=== PATIENT | male | born 1930 | race Caucasian/White ===

== ENCOUNTER 2017-10-10 10:59 | Observation (INO) | payer OTHER ==
--- NOTE | 2017-10-06 15:19 | Diagnostic Imaging Report ---
PROCEDURE: Frontal and lateral views of the chest. COMPARISON: None. INDICATIONS: PREOPERATIVE CHEST XRAY FOR CYSTO SURGERY FINDINGS: Lines/tubes: Dual-lead left-sided cardiac pacemaker. Lungs: The lungs are well inflated and clear. There is no evidence of pneumonia or pulmonary edema. Pleura: There is no pleural effusion or pneumothorax. Heart and mediastinum: The cardiac silhouette is moderately enlarged. The sternotomy wires and mediastinal clips. Bones: Multilevel degenerative changes of the thoracic spine with anterior wedging of mid to lower thoracic vertebral bodies. IMPRESSION: 1. Moderate cardiomegaly without acute decompensation. Latoya Muñiz M.D. Dictated by: Latoya Muñiz M.D. on 10/06/2017 at 15:28 Electronically approved by: Latoya Muñiz M.D. on 10/06/2017 at 15:28
[~2017-10-10] VITALS: Ht 180.3 cm; Wt 88.7 kg
[~2017-10-10 10:59] MED LIST: DIGOXIN125 MCG PO; FISH OIL; FISH OIL 1,0001 EAC2; HEART PILL; MAGNESIUM PO; OMEPRAZOLE20 M1 PO; PRIMIDONE; VITAMIN C1000 MG
[2017-10-10] MEDS ORDERED: GENTAMICIN 80MG/NS 100 ML 200 ML IV ONE (11:17)
[2017-10-10] MEDS ORDERED: CLINDAMYCIN 300MG 50 ML IV ONE (11:18)
[2017-10-10] MEDS ORDERED: CEFAZOLIN SOD 1 GM VIAL ONE (11:18)
[2017-10-10] MEDS ORDERED: ASPIR 8181 MG PO (11:27)
[2017-10-10] MEDS ORDERED: BACITRACIN ZINC 15 GM OINT ONE (12:40)
[2017-10-10] MEDS ORDERED: BACITRACIN 50,000 UNIT VIAL ONE (12:41)
[2017-10-10] MEDS ORDERED: SEVOFLURANE INHAL SOLN 250 ML PEN BTL ONE (13:57)
[2017-10-10] MEDS ORDERED: PROPOFOL IV EMULSION 10 MG/ML 20 ML VIAL ONE (13:57)
[2017-10-10] MEDS ORDERED: ONDANSETRON HCL INJ 2 MG/ML VIAL ONE (13:57)
[2017-10-10] MEDS ORDERED: LIDOCAINE HCL 2% LOCAL INJ 5 ML SDV VIAL INJ ONE (13:57)
[2017-10-10] MEDS ORDERED: DEXAMETHASONE SOD PHOS INJ 4 MG/ML VIAL ONE (13:57)
[2017-10-10] MEDS: D5.45%NS/KCL 20MEQ 1,000 ML IV SCH ×2 (16:09→20:30)
[2017-10-10] MEDS ORDERED: ACETAMINOPHEN 1000 MG/100 ML IV PRN (16:15)
[2017-10-10] MEDS ORDERED: ONDANSETRON HCL INJ 2 MG/ML VIAL IV PRN (16:15)
[2017-10-10] MEDS ORDERED: DIPHENHYDRAMINE HCL INJ 50 MG/ML VIAL IM PRN (16:15)
[2017-10-10] MEDS ORDERED: NALOXONE HCL INJ 0.4 MG/ML AMP IV PRN (16:15)
[2017-10-10] MEDS ORDERED: MORPHINE SULFATE 1 MG/ML 30ML PCA IV PRN (16:15)
[2017-10-10] MEDS ORDERED: DIPHENHYDRAMINE HCL 25 MG CAP PO PRN (16:15)
[2017-10-10] MEDS ORDERED: MORPHINE SULFATE 1 MG/ML 30ML PCA ONE (16:31)
[2017-10-10] MEDS: DOCUSATE SODIUM 100 MG CAP PO SCH (17:00)
[2017-10-10 17:42] VITALS: BP 138/76
[2017-10-10 17:51] VITALS: BP 138/76
[2017-10-10] MEDS ORDERED: FENTANYL CITRATE/PF 100MCG/2 ML INJ ONE (18:50)
[2017-10-10 20:00] VITALS: BP 151/76
[2017-10-10] MEDS: CLINDAMYCIN 300MG 50 ML IV SCH (20:29)
[2017-10-10 20:37] VITALS: BP 138/76
[2017-10-10 21:04] VITALS: BP 138/76
[2017-10-10] MEDS: PIPERACILLIN/TAZO 2.25 GM 50 ML IV SCH (21:43)
[2017-10-11 00:13] VITALS: BP 161/76
[2017-10-11 04:00] VITALS: BP 157/78
[2017-10-11] MEDS: CLINDAMYCIN 300MG 50 ML IV SCH (05:35)
[2017-10-11] MEDS: D5.45%NS/KCL 20MEQ 1,000 ML IV SCH (05:35)
[2017-10-11] MEDS: PIPERACILLIN/TAZO 2.25 GM 50 ML IV SCH (06:29)
[2017-10-11 06:43] LABS: BASOPHILS % 0.2 % (0.0-1.0); HEMATOCRIT 34.7 % (38.2-49.6); HEMOGLOBIN 11.4 g/dL (14.0-18.0); LYMPHOCYTES # (AUTO) 1.6 (1.0-3.2); LYMPHOCYTES % 12.7 % (18.0-39.1); MEAN CORPUSCULAR HEMOGLOBIN 28.4 pg (28-32); MEAN CORPUSCULAR HGB CONC 32.9 g/dL (31-35); MEAN CORPUSCULAR VOLUME 86.3 fL (81-99); MONOCYTES % 7.7 % (4.4-11.3); NEUTROPHILS # (AUTO) 10.1 (2.1-6.9); NEUTROPHILS % 78.9 % (38.7-80.0); PLATELET COUNT 146 x10e3/uL (140-360); RED BLOOD COUNT 4.02 x10e6/uL (4.3-5.7); RED CELL DISTRIBUTION WIDTH 16.7 % (11.7-14.4)
[2017-10-11 07:05] LABS: ANION GAP 11.5 mmol/L (8-16); BLOOD UREA NITROGEN 14 mg/dL (7-26); BUN/CREATININE RATIO 13 (6-25); CALCIUM 8.3 mg/dL (8.4-10.2); CARBON DIOXIDE 26 mmol/L (22-29); CHLORIDE 106 mmol/L (98-107); CREATININE, SERUM 1.04 mg/dL (0.72-1.25); EST GLOMERULAR FILTRATION RATE > 60 ML/MIN (60-); GLUCOSE 117 mg/dL (74-118); POTASSIUM 4.5 mmol/L (3.5-5.1); SODIUM 139 mmol/L (136-145)
[2017-10-11 08:00] VITALS: BP 155/72
[2017-10-11] MEDS ORDERED: FUROSEMIDE INJ 10 MG/ML 2 ML VIAL IV ONE (09:15)
[2017-10-11] MEDS ORDERED: POTASSIUM CHLORIDE 10 MEQ TABCR PO ONE (09:15)
[2017-10-11] MEDS: DOCUSATE SODIUM 100 MG CAP PO SCH (09:25)
[2017-10-11] MEDS ORDERED: TYLENOL WITH C1 EACH PO (10:24)
[2017-10-11] MEDS ORDERED: LEVAQUIN250 MG PO (10:25)
--- NOTE | 2017-10-11 13:21 | Discharge Summary ---
PRIMARY CARE PHYSICIAN: Dr. Chon Pastor. RECRUITMENT INTERNSHIP: Dr. Abel Ewing. CHIEF COMPLAINT: Impotency. SUMMARY: Patient is an 87-year-old male with multiple baseline medical problems, hypertension and has impotency. The patient is status post penile prosthesis implantation. The patient is otherwise stable. He was observed overnight for care. PAST MEDICAL HISTORY: Hypertension, impotency, cardiac arrhythmia. PAST SURGICAL HISTORY: Status post penile implantation. He also has a permanent pacemaker. SOCIAL HISTORY: Patient does not smoke or use alcohol. No recreational drugs. ALLERGIES: SULFA. REVIEW OF SYSTEMS: As above. EXAM: Vital signs: Temperature is 98, blood pressure 157/78, pulse rate 86, respirations 18. The patient is in no acute distress. He is awake. HEENT: Normocephalic, atraumatic, anicteric. Neck is supple grossly. Pulmonary: Clear. Cardiovascular: Regular rate and rhythm. Abdomen is soft. Status post penile implantation. Extremities: No cyanosis or edema. Neuro exam: No focal deficit. LABORATORY: Reviewed. Otherwise unremarkable. IMPRESSION 1. Status post penile implantation. 2. Baseline hypertension and permanent pacemaker. PLAN: Continue with care. The patient will go home today with followup with Dr. Ewing as planned. The patient will take Tylenol No. 3 for pain and Levaquin 250 mg daily for 10 days. Patient is stable and discharged home today. Follow up with Dr. Abel Ewing per his instructions. Job#: [id number]
--- NOTE | 2017-11-24 01:14 | Operative Report ---
DATE OF PROCEDURE: October 10, 2017 PREOPERATIVE DIAGNOSES 1. Organic impotence. 2. BPH. POSTOPERATIVE DIAGNOSES 1. Organic impotence. 2. BPH. OPERATIVE PROCEDURES PERFORMED 1. Cystourethroscopy (separate procedure performed to evaluate the patient in light of the BPH and its prior management). 2. Implantation of multicomponent inflatable penile prosthesis. FLOOR MANAGER: Velma Ewing MD. ANESTHESIA: General. COMPLICATIONS: None. CLINICAL SUMMARY: Wong Robbins is an 87-year-old man who is extremely active. He has failed all acceptable modalities of impotence management and elected to proceed with implantation of penile prosthesis. He is aware of the risks of bleeding, infection, injury to adjacent structures, need for additional procedures and elected to proceed. He is also aware of the risks of erosion and the risk of potentially needing additional surgery for any complication. He understood all these risks and elected to proceed. OPERATIVE PROCEDURE IN DETAIL: Informed consent was verified. Wong Robbins was properly identified, taken to the operating room, placed on the operation table in supine position. Anesthesia was uneventfully begun. The patient's abdomen and genitalia were shaved, prepared and draped in usual sterile fashion. Flexible cystoscope was brought into the urethra and guided under direct vision through the normal urethra past the normal sphincteric region through the prostate bed which was significant for a wide open prostatic bed with a very wide caliber, probably not clinically significant banding at the bladder neck. We easily placed the scope through this band. Panendoscopy revealed a small diverticulum of the bladder, but no tumors, no stones and no suspicious lesions. The cystoscope was withdrawn. Taveras catheter was placed. A transverse penoscrotal incision was made, carried through all layers of the genitalia where we identified the urethra and identified both corpora cavernosa. Each corpora cavernosum was then incised. It was dilated and calibrated. We chose an 18-cm prosthesis with 6 cm of rear tip extenders bilaterally. We pre-placed Vicryl sutures for both corporotomies and we then inserted the cylinders and tied down all the sutures, first on the patient's left hand side then the patient's right hand side. The prosthesis seemed to sit well within the dilated corpora cavernosa. Good hemostasis was achieved. We then created a sub Dartos pouch for the pump. We then placed the reservoir into the groin, inflated the balloon to 65 mL. We then, in standard fashion, utilized the Quick Connect system to connect the reservoir tubing to the pump tubing. We then tested the prosthesis. It seemed to work perfectly well. We left it partially inflated for hemostasis. Copious irrigation was performed. We verified hemostasis. The patient's incision was then approximated in 4 layers utilizing chromic suture. We also in the closure secured the pump within its sub Dartos pouch as well. Sterile dressings were applied and the patient was uneventfully reversed from anesthesia, taken to recovery room in stable condition. There were no complications during the procedure. He tolerated the procedure well. Sponge, needle and instrument counts were grossly correct times 2. For estimated blood loss please refer to the anesthetic record. Plans will be to keep the patient overnight for intravenous antibiotics and of course proceed with an ongoing lifelong urological followup. Job#: [id number] GE cc:DEJA SIM MD
== END 2017-10-11 11:33 | disposition home or self-care (01) ==
LOC: OR 10:59 → IMCU 17:30
PROVIDERS: ADMIT Internal Medicine; ATTEND Internal Medicine
DX: N52.9 Male erectile dysfunction, unspecified (principal); I10 Essential (primary) hypertension; Z88.2 Allergy status to sulfonamides; N40.0 Benign prostatic hyperplasia without lower urinary tract symptoms; N41.1 Chronic prostatitis; Z95.0 Presence of cardiac pacemaker; N32.3 Diverticulum of bladder; I49.9 Cardiac arrhythmia, unspecified
CPT/HCPCS: 54401; C1813; 36415; 71046; 80048; 83735; 85025; 93005; 96361; G0378; J0690; J1100; J1580; J1940; J2001; J2270; J2405; J2543

== ENCOUNTER 2020-05-26 10:49 | Observation (INO) | payer MEDICARE, OTHER ==
[2020-05-22 15:19] LABS: BASOPHILS % 0.4 % (0.0-1.0); EOSINOPHILS % 0.4 % (0.0-6.0); HEMATOCRIT 40.1 % (38.2-49.6); HEMOGLOBIN 12.6 g/dL (14.0-18.0); LYMPHOCYTES # (AUTO) 1.9 (1.0-3.2); LYMPHOCYTES % 26.9 % (18.0-39.1); MEAN CORPUSCULAR HEMOGLOBIN 27.8 pg (28-32); MEAN CORPUSCULAR HGB CONC 31.4 g/dL (31-35); MEAN CORPUSCULAR VOLUME 88.5 fL (81-99); MONOCYTES # (AUTO) 0.7 (0.2-0.8); MONOCYTES % 9.8 % (4.4-11.3); NEUTROPHILS # (AUTO) 4.4 (2.1-6.9); NEUTROPHILS % 62.1 % (38.7-80.0); PLATELET COUNT 163 x10e3/uL (140-360); RED BLOOD COUNT 4.53 x10e6/uL (4.3-5.7); RED CELL DISTRIBUTION WIDTH 18.3 % (11.7-14.4)
[2020-05-22 15:36] LABS: ANION GAP 16.3 mmol/L (8-16); CALCIUM 8.2 mg/dL (8.4-10.2); CREATININE, SERUM 1.63 mg/dL (0.72-1.25)
[2020-05-22 15:38] LABS: POTASSIUM 5.3 mmol/L (3.5-5.1)
--- NOTE | 2020-05-22 15:48 | Diagnostic Imaging Report ---
EXAMINATION: CHEST 2 VIEWS INDICATION: Pre-operative COMPARISON: Chest radiograph 10/06/2017 FINDINGS: LINES/TUBES:Left chest pacer unchanged. Interval placement of right chest implanted device with electrodes projecting superiorly out of view. LUNGS:The lungs are well-inflated. No focal consolidation or pulmonary edema. PLEURA:No pleural effusion or pneumothorax. MEDIASTINUM:The cardiomediastinal silhouette appears normal in size and shape. Postoperative findings of prior CABG. BONES/SOFT TISSUES:No acute osseous injury. ABDOMEN:No free air under the diaphragm. IMPRESSION: No focal pneumonia or pulmonary edema. Signed by: Whitley Ferrer MD on 05/22/2020 3:45 PM
[~2020-05-26] VITALS: Ht 180.3 cm; Wt 75.7 kg
[~2020-05-26 10:49] MED LIST changes: +ASPIR 8181 MG PO; +FUROSEMIDE40 MG PO; +LEVAQUIN250 MG PO; +LEVOTHYROXINE50 MCG PO; +POTASSIUM CHLO20 ME1 PO; +TYLENOL WITH C1 EACH PO; -VITAMIN C1000 MG; +VITAMIN C1000 MG PO
[2020-05-26] MEDS ORDERED: CLINDAMYCIN 300MG 50 ML IV ONE (11:16)
[2020-05-26] MEDS ORDERED: PIPER-TAZ 3.375 GM 50 ML ONE (11:16)
[2020-05-26] MEDS ORDERED: BUPIVACAINE HCL 0.5% INJ 30 ML VIAL INJ ONE (12:06)
[2020-05-26] MEDS ORDERED: BACITRACIN ZINC 15 GM OINT ONE (12:06)
[2020-05-26 12:58] LABS: CALCIUM 8.1 mg/dL (8.4-10.2); CREATININE, SERUM 1.34 mg/dL (0.72-1.25)
[2020-05-26] MEDS ORDERED: VANCOMYCIN HCL 500 MG ONE (13:07)
[2020-05-26] MEDS ORDERED: FENTANYL CITRATE/PF 100MCG/2 ML INJ ONE (16:50)
[2020-05-26] MEDS ORDERED: SODIUM CHLORIDE 0.9% 1000ML 1,000 ML IV SCH (17:00)
[2020-05-26] MEDS ORDERED: ONDANSETRON HCL INJ 2MG/ML 2ML 2 MG/ML VIAL IV PRN (17:00)
[2020-05-26] MEDS ORDERED: DIPHENHYDRAMINE HCL 25 MG CAP PO PRN (17:00)
[2020-05-26] MEDS ORDERED: ACETAMINOPHEN/CODEINE 300MG - 30MG TAB PO PRN (17:00)
[2020-05-26] MEDS ORDERED: MORPHINE SULFATE 2 MG/ML SYR 1ML IV PRN (17:00)
[2020-05-26] MEDS ORDERED: LIDOCAINE HCL 2% LOCAL INJ 5 ML SDV VIAL INJ ONE (17:10)
[2020-05-26] MEDS ORDERED: ONDANSETRON HCL INJ 2MG/ML 2ML 2 MG/ML VIAL ONE (17:10)
[2020-05-26] MEDS ORDERED: PROPOFOL IV EMULSION 10 MG/ML 20 ML VIAL ONE (17:10)
[2020-05-26] MEDS ORDERED: SEVOFLURANE INHAL SOLN 250 ML PEN BTL ONE (17:10)
[2020-05-26] MEDS ORDERED: DEXAMETHASONE SOD PHOS INJ 4 MG/ML VIAL ONE (17:10)
--- OUTSIDE RECORDS SUMMARY | 2020-05-26 17:10 | XMS REPORT | Clinical Summary ---
Author Author [facility] Address Unknown Phone Unavailable Care Team Providers Care Tooth Cutter Contact Wheel Name Role Phone Asked, No Pcp PCP Unavailable Allergies Comments Active Allergy Reactions Severity Noted Date Codeine Itching Medium 01/31/2019 Medications End Date Status Medication Sig Dispensed Refills Start Date Active amIODarone (PACERONE) 100 TK 1 T PO QD 3 11/11 MG tablet 9 Active DIGOX 125 mcg tablet TK 1 T PO QD 3 9 Active levothyroxine (SYNTHROID, TK 1 T PO QD 0 11/10 LEVOXYL) 25 mcg tablet 9 Active lisinopril TK 1 T PO QD 3 (PRINIVIL,ZESTRIL) 5 mg 9 tablet Active testosterone cypionate INJ 1 ML IM Q 3 01 (DEPOTESTOTERONE 2 WKS 9 CYPIONATE) 200 mg/mL injection Active topiramate (TOPAMAX) 100 TK 1 T PO BID 0 11/20 MG tablet - pt takes 9 half tab bid - 50mg Active TURMERIC ORAL Take by 0 mouth. Active melatonin 10 mg capsule Take by 0 mouth. Active Problems Problem Noted Date Essential tremor 01/30/2019 Family History Relation Name Status Comments Father Mother Social History Date Tobacco Use Types Packs/Day Years Used 1944 - 1985 Former Smoker 3 44 Smokeless Tobacco: Former Chew Quit: 1950 User Comments: 46 yrs Drinks/Week oz/Week Comments Alcohol Use none since 1954 No Alcohol Habits Answer Date Recorded How often do you have a drink containing alcohol? Never 12/25/2018 How many drinks containing alcohol do you have on No t asked a typical day when you are drinking? How often do you have six or more drinks on one Not asked occasion? Sex Assigned at Date Recorded Not on file Industry Job Start Date Occupation Not on file Not on file Not on file Travel End Travel History Travel Start No recent travel history available. Last Filed Vital Signs Not on file Plan of Treatment Health Maintenance Due Date Last Done Comments SHINGLES VACCINES (#1) 1982 65+ PNEUMOCOCCAL VACCINE 1997 (1 of 2 - PCV13) INFLUENZA VACCINE 06/12/2020 Implants Device Identifier Shelf Expiration Date Model / Serial / L ot Implanted Type Area Manufactur er 02/24/2020 [id number] / / [id number] Kit Lead Dbs Elctrd 1.5mm 40cm - Neurosurgi Right: Brain [employer] [id number] sandra [place] - Implanted: Qty: 1 on 01/30/2019 by Implants Lance Malik MD at [facility] 02/24/2020 [id number] / / [id number] Kit Lead Dbs Elctrd 1.5mm 40cm - Neurosurgi Left: Brain [employer] [id number] sandra [place] - Implanted: Qty: 1 on 01/30/2019 by Implants Lance Malik MD at [facility] 07/26/2020 [id number] / [id number] / LOT NA Neurostimulator Imp Activa Pc Neurosurgi N/A: N/A [employer] [id number] 2chnl For Dbs 2.4oz - sandra NEURO MODUL [id number] - [id number] Implants ATION Implanted: Qty: 1 on 02/13/2019 by Lance Lott MD at [facility] [id number] / [id number] / LOT NA Neurostimulator Imp Activa Neurosurgi N/A: N/A MED TRONIC 9.4x5.6x2.8cm Nrechrgbl For Dbs - sandra NEUR OMODUL [id number] - [id number] Implants ATION Implanted: Qty: 1 on 02/13/2019 by Lance Lott MD at [facility] 04/19/2022 [id number] / [id number] / LOT NA Extension Dbs Nurostmltr Torque Neurosurgi N/A: N/A [employer] Wrench 38cm Stretch-Coil - sandra NEUROMODUL [id number] - [id number] Implants ATION Implanted: Qty: 1 on 02/13/2019 by Lance Lott MD at [facility] 04/18/2022 [id number] / [id number] / LOT NA Extension Dbs Nurostmltr Torque Neurosurgi N/A: N/A [employer] Wrench 38cm Stretch-Coil - sandra NEUROMODUL [id number] - [id number] Implants ATION Implanted: Qty: 1 on 02/13/2019 by Lance Lott MD at [facility] Results Not on fileafter 05/26/2019 Insurance Type Payer Benefit Subscriber ID Effective Phone Address Plan / Dates Group [facility] [employer] xxxxxxxxx 2018-P JEREMIAH ruiz Advance Directives For more information, please contact: [phone] Patient Wellness Spa Manager Explanation Type Date Recorded Advance Directives, Living Will and Medical Power of Legal Instructor
--- OUTSIDE RECORDS SUMMARY | 2020-05-26 17:12 | XMS REPORT | Continuity of Care Document ---
Author Author [facility] Organization [facility] Address [address] [place] [address] Phone Unavailable Care Team Providers Care Instructional Assistant Name Role Phone Asked, Pcp No PCP Unavailable HAMPEL, SUBHASH Attphys Unavailable Problems Condition Name Condition Details Condition Category Status Onset Date Resolution Date Last Treatment Date Treating Clinician Comments Source Essential tremor Essential tremor Disease Active 2019-01-30 00:00:00 [facility]ist Allergies, Adverse Reactions, Alerts Allergy Name Allergy Type Status Severity Reaction(s) Onset Date Inacti ve Date Treating Clinician Comments Source Codeine Propensity to adverse reactions to drug Active Itching 2019-01-31 00:00:00 Stan Fitzgerald t Social History Social Habit Start Date Stop Date Quantity Comments Source History of tobacco use Current smoker [place] Mandaen History SDOH Alcohol Std Drinks [place] Mandaen History SDOH Alcohol Binge [place] Mandaen Sex Assigned At [facility] Mandaen Cigarettes smoked current (pack per day) - Reported 00:00:00 2019-02-15 00:00:00 Stan Mandaen Cigarette pack-years 2019-02-15 00:00:00 2019-02-15 00:00:00 Pierce Mandaen Alcohol intake 2019-02-15 00:00:00 2019-02-15 00:00:00 Current non-drinker of alcohol (finding) Pierce Mandaen Tobacco Comment 2019-01-18 00:00:00 2019-01-18 00:00:00 46 yrs Pierce Mandaen Alcohol Comment 2019-01-18 00:00:00 2019-01-18 00:00:00 none since [age] Pierce Mandaen History SDOH Alcohol Frequency 2018-12-25 00:00:00 2018-12-25 00:00:0 0 1 Pierce Mandaen Smoking Status Start Date Stop Date Source Former smoker 2019-02-15 00:00:2019-02-15 00:00:00 Stan Can Medications Ordered Medication Name Filled Medication Name Start Date Stop Da te Current Medication? Ordering Clinician Indication Dosage Frequency Signature (SIG) Comments Components Source TURMERIC ORAL 2019-02-13 12:08:07 Yes Take b y mouth. Stan Can melatonin 10 mg capsule 2019-02-13 12:08:07 Yes Take by mouth. Stan Can testosterone cypionate (DEPOTESTOTERONE CYPIONATE) 200 mg/mL injection 2018-12-21 00:00:00 Yes INJ 1 ML IM Q 2 WK S Stan Can amIODarone (PACERONE) 100 MG tablet 2018-11-30 00:00:00 Yes TK 1 T PO QD Stan aCn lisinopril (PRINIVIL,ZESTRIL) 5 mg tablet 2018-11-23 00:00:00 Yes TK 1 T PO QD Stan Can levothyroxine (SYNTHROID, LEVOXYL) 25 mcg tablet 2018-11-21 00:00:00 Yes TK 1 T PO QD Stan Meth odvivi topiramate (TOPAMAX) 100 MG tablet 2018-11-20 00:00:00 Yes TK 1 T PO BID - pt takes half tab bid - 50mg [place] Mandaen DIGOX 125 mcg tablet 2018-10-26 00:00:00 Yes TK 1 T PO QD Stan Can Procedures This patient has no known procedures. Plan of Care Planned Activity Planned Date Details Comments Source Future Scheduled Test 2020-06-12 00:00:00 INFLUENZA VACCINE [code = INFLUENZA VACCINE] Stan Can Future Scheduled Test 1997 00:00:00 65+ PNEUMOCOCCAL V ACCINE (1 of 2 - PCV13) [code = 65+ PNEUMOCOCCAL VACCINE (1 of 2 - PCV13)] Stan Can Future Scheduled Test 1982 00:00:00 SHINGLES VACCINES (#1) [code = SHINGLES VACCINES (#1)] Stan Can Encounters Start Date/Time End Date/Time Encounter Type Admission Type [facility] Facility Care Department Encounter ID Source 2019-12-24 15:08:00 2019-12-24 12:24:00 Inpatient [facility] Results Test Description Test Time Test Comments Results Result Comments Source CHEST 2 VIEWS 2020-05-22 15:43:00 [facility] [address] [address] Patient Name: ULDIN GROVES MR #: [id number] : 1930 Age/Sex: 89/M Req #: [id number] Adm Physician: Ordered by: SUBHASH MONTALVO MD Report #: [id number] Location: OR Room/Bed: Procedure: [id number] DX/CHEST 2 VIEWS Exam Date: 05/22/20 Exam Time: 1526 REPORT STATUS: Signed EXAMINATION: CHEST 2 VIEWS INDICATION: Pre-operative COMPARISON: Chest radiograph 10/06/2017 FINDINGS: LINES/TUBES:Left chest pacer unchanged. Interval placement of right chest implanted device with electrodes projecting superiorly out of vie w. LUNGS:The lungs are well-inflated. No focal consolidation or pulmonary edema. PLEURA:No pleural effusion or pneumothorax. MEDIASTINUM:The cardiomediastinal silhouette appears normal in size and shape. Postoperative findings of prior CABG. BONES/SOFT TISSUES:No acute osseous injury. ABDOMEN:No free air under the diaphragm. IMPRESSION: No focal pneumonia or pulmonary edema. Signed by: Awa Ferrer MD on 05/22/2020 3:45 PM Dictated By: AWA FERRER MD 154 Transcribed By: HAI on 05/22/201544 COPY TO: SUBHASH MONTALVO MD CHEST 2 VIEWS [place] [address] Patient Name: LUDIN GROVES MR #: [id number] : 1930 Age/Sex: 87/M Req #: [id number] Adm Physician: Ordered by: SUBHASH MONTALVO MD Report #: [id number] Location: OR Room/Bed: Procedure: [id number] DX/CHEST 2 VIEWS Exam Date: 10/06/17 Exam Time: 1200 REPORT STATUS: Signed PROCEDURE: Frontal and lateral views of the chest. COMPARISON: None. INDICATIONS: PREOPERATIVE CHEST XRAY FOR CYSTO SURGERY FINDINGS: Lines/tubes: Dual-lead left-sided cardiac pacemaker. Lungs: The lungs are well inflated and clear. There is no evidence of pneumonia or pulmonary edema. Pleura: There is no pleural effusion or pneumothorax. Heart and mediastinum: The cardiac silhouette is moderately enlarged. The sternotomy wires and mediastinal clips. Bones: Multilevel degenerative changes of the thoracic spine with anterior wedging of mid to lower thoracic vertebral bodies. IMPRESSION: 1. Moderate cardiomegaly without acute decompensation. Latoya Monge M.D. Dictated by: Latoya Monge M.D. on 10/06/2017 at 15:28 Electronically approved by: Latoya Monge M.D. on 10/06/2017 at 15:28 Dictated By: SITA MONGE MD, MD 1528 Transcribed By: HUMZA on 10/06/17 1528 COPY TO: SUBHASH MONTALVO MD
--- NOTE | 2020-05-26 17:51 | NUR ---
RECEIVED PATIENT FROM PACU. PATIENT A/O X3, VS STABLE, NO S/S OF DISTRESS. PENILE DRESSING C/D/I. SCD'S AND CYNTHIA HOSE BILATERALLY. RIGHT WRIST IV PATENT AND INTACT. MATTA DRAINING CLEAR YELLOW URINE. CALL LIGHT IN REACH WILL CONTINUE TO MONITOR PATIENT.
[2020-05-26 18:16] VITALS: BP 121/94
[2020-05-26 18:17] VITALS: BP 121/94
[2020-05-26 18:21] VITALS: BP 121/94
[2020-05-26] MEDS: DOCUSATE SODIUM 100 MG CAP PO SCH (18:38)
[2020-05-26 19:20] VITALS: BP 111/66
--- NOTE | 2020-05-26 19:22 | NUR ---
Received pt in bed awake a/o x4. No c/o no s/sx of acute distress noted. Bed in low and locked position, call vizcaino and personal items within reach. IvF infusing no diff, beatty to DD clear yellow urine, no diff. Pt sitting up eating. Bedside report completed. Will cont to mon pt.
[2020-05-26] MEDS: CLINDAMYCIN 300MG 50 ML IV SCH (21:00)
[2020-05-26] MEDS: PIPERACILLIN/TAZO 2.25 GM 50 ML IV SCH (22:00)
[2020-05-26 22:05] VITALS: BP 111/66
[2020-05-27 01:31] VITALS: BP 117/57
[2020-05-27] MEDS: CLINDAMYCIN 300MG 50 ML IV SCH ×2 (05:00→13:45)
[2020-05-27 05:21] LABS: BASOPHILS % 0.2 % (0.0-1.0); HEMATOCRIT 36.1 % (38.2-49.6); HEMOGLOBIN 11.4 g/dL (14.0-18.0); LYMPHOCYTES % 10.5 % (18.0-39.1); MEAN CORPUSCULAR HEMOGLOBIN 27.3 pg (28-32); MEAN CORPUSCULAR HGB CONC 31.6 g/dL (31-35); MEAN CORPUSCULAR VOLUME 86.4 fL (81-99); MONOCYTES # (AUTO) 0.8 (0.2-0.8); MONOCYTES % 8.3 % (4.4-11.3); NEUTROPHILS # (AUTO) 7.5 (2.1-6.9); NEUTROPHILS % 80.6 % (38.7-80.0); PLATELET COUNT 133 x10e3/uL (140-360); RED BLOOD COUNT 4.18 x10e6/uL (4.3-5.7); RED CELL DISTRIBUTION WIDTH 17.3 % (11.7-14.4)
[2020-05-27 05:42] LABS: ANION GAP 12.7 mmol/L (8-16); CALCIUM 7.6 mg/dL (8.4-10.2); CREATININE, SERUM 1.49 mg/dL (0.72-1.25); POTASSIUM 4.7 mmol/L (3.5-5.1)
[2020-05-27] MEDS: PIPERACILLIN/TAZO 2.25 GM 50 ML IV SCH (06:00)
[2020-05-27 06:23] VITALS: BP 114/61
--- NOTE | 2020-05-27 07:00 | NUR ---
RECEIVED PATIENT RESTING IN BED NO S/S OF DISTRESS. BED LOW, WHEELS LOCKED, SIDE RAILS X2. CALL LIGHT IN REACH WILL CONTINUE TO MONITOR PATIENT.
[2020-05-27 07:59] VITALS: BP 114/69
[2020-05-27] MEDS ORDERED: POTASSIUM CHLORIDE 20 MEQ TAB CR PO SCH (09:00)
[2020-05-27] MEDS ORDERED: DIGOXIN 0.125 MG TAB PO SCH (09:00)
[2020-05-27] MEDS ORDERED: ASPIRIN 81 MG CHEW TAB PO SCH (09:00)
[2020-05-27] MEDS ORDERED: MAGNESIUM 200 MG PO SCH (09:00)
[2020-05-27] MEDS ORDERED: ASCORBIC ACID 500 MG TAB PO SCH (09:30)
[2020-05-27 09:54] VITALS: BP 114/69
--- NOTE | 2020-05-27 10:10 | NUR ---
REMOVED PATIENTS MATTA. CATHETER TIP INTACT ON MATTA. PATIENT DUE TO VOID.
[2020-05-27] MEDS: DOCUSATE SODIUM 100 MG CAP PO SCH (10:14)
[2020-05-27] MEDS ORDERED: ONDANSETRON HCL 4 MG ORAL DISINTEGRATING TAB PO PRN (10:30)
[2020-05-27] MEDS ORDERED: LEVOFLOXACIN250 MG PO (10:47)
[2020-05-27] MEDS ORDERED: TYLENOL # 31 EA PO (10:47)
[2020-05-27] MEDS ORDERED: LEVOTHYROXINE SODIUM 25 MCG TABLET PO SCH (11:00)
[2020-05-27 11:52] VITALS: BP 114/74
--- NOTE | 2020-05-27 14:58 | NUR ---
REMOVED PATIENTS IV. CATHETER TIP INTACT AND PRESSURE DRESSING APPLIED.
--- NOTE | 2020-05-27 15:02 | NUR ---
PATIENT DISCHARGED FROM FACILITY. PATIENT GATHERED ALL PERSONAL BELONGINGS, DISCHARGE INSTRUCTIONS AND FOLLOW UP INFORMATION. PATIENT LEFT UNIT IN WHEELCHAIR AND WENT HOME VIA PRIVATE AUTO.
--- NOTE | 2020-05-27 15:06 | NUR ---
PATIENT HAS VOIDED SINCE MATTA REMOVAL.
--- NOTE | 2020-06-13 08:56 | Operative Report ---
DATE OF PROCEDURE: 05/26/2020 SURGEON: Abel Ewing MD PREOPERATIVE DIAGNOSES: 1. BPH. 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 POSTOPERATIVE DIAGNOSES: 1. BPH. 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 OPERATIONS PERFORMED: 1. Cystourethroscopy (separate procedure performed to evaluate the BPH and make note of the bladder diverticulum). 2. Complete removal of the multi-component inflatable penile prosthesis. 3. Implantation of a malleable penile prosthesis. TERMITE TREATER: Velma Ewing MD. COMPLICATIONS: None. CLINICAL SUMMARY: Wong Robbins is an 89-year-old man with a perfectly functioning inflatable penile prosthesis. The patient cannot work it with his manual dexterity, limitations, and wants it replaced with malleable prosthesis. He is aware of the risks of bleeding, infection, injury to adjacent structures, need for additional procedures and elected to proceed. OPERATIVE PROCEDURE IN DETAIL: Informed consent was verified, Wong Robbins was properly identified, taken to the operating room, placed on the operating table in supine position. Anesthesia was uneventfully begun. The patient's genitalia and abdomen were shaved, prepared for 10 minutes by the clock with Betadine solution and draped. The flexible cystoscope was brought under direct vision and guided down the unremarkable urethra through normal sphincteric region through the prostate bed, which was relatively open, being status post transurethral procedure. Panendoscopy of the bladder revealed no suspicious mucosal lesions. There was one small diverticulum off the dome. There were no stones. The cystoscope was withdrawn. Taveras catheter was placed. A transverse high scrotal incision was then made, carried through all layers of the scrotum. We identified the left tunica of the corpora cavernosa. We placed stay sutures on either side, incised in between. We extended the incision and delivered the cylinder. We then measured the length at 24 cm of total. Identical maneuver was performed on the contralateral side. We then dissected free the pump followed by the reservoir. Copious irrigation was performed and the old implant sent off from the field. We then pre-placed Vicryl sutures into the corporal cavernosal lining in order to close without risking putting a needle in the prosthesis. We then placed a malleable prosthesis that was 11 mm x 24 cm total. We tied down the pre-placed sutures and the patient had an excellent prosthesis result. Copious irrigation was performed with antibiotic irrigant throughout the case and upon closure, the scrotum was closed in layers utilizing absorbable sutures. Sterile dressings were applied. The patient was uneventfully reversed from anesthesia and taken to recovery room in stable condition. There were no complications of the procedure. The patient tolerated the procedure well. We will plan on routine postoperative care and of course ongoing urological followup. Abel MD SANTANA Ewing/TANNER /[id number]
== END 2020-05-27 15:30 | disposition home or self-care (01) ==
LOC: OR 10:49 → PACU V 16:46 → INTOOBSV 16:46 → MED/SURG 17:52 → INTOOBSV 05-27 08:27 → OBSVTOIN 05-27 08:27
PROVIDERS: ADMIT Internal Medicine; ATTEND Internal Medicine
DX: N40.0 Benign prostatic hyperplasia without lower urinary tract symptoms (principal); N52.9 Male erectile dysfunction, unspecified; N32.3 Diverticulum of bladder; I25.10 Atherosclerotic heart disease of native coronary artery without angina pectoris; I25.2 Old myocardial infarction; I50.42 Chronic combined systolic (congestive) and diastolic (congestive) heart failure; I48.0 Paroxysmal atrial fibrillation
CPT/HCPCS: 36415 ×3; 52000; 54417; 71046; 80048 ×3; 85025 ×2; 88300; 93005; 96361; C2622; G0378 ×2; J1100; J2001; J2405; J2543 ×3; J2704; J3010; J3370; J7030; U0002

== ENCOUNTER 2020-05-29 15:25 | Emergency (ER) | payer MEDICARE, OTHER ==
[~2020-05-29] VITALS: Ht 180.3 cm; Wt 75.7 kg
[~2020-05-29 15:25] MED LIST changes: +LEVOFLOXACIN250 MG PO; +TYLENOL # 31 EA PO
--- NOTE | 2020-05-29 17:01 | Diagnostic Imaging Report ---
Exam: KUB - 2 views Indication: Constipation Comparison: None Findings: Nonobstructive bowel gas pattern. No free air. Upper abdominal calcifications are likely vascular in etiology. Phleboliths in the pelvis. No acute osseous injury. Degenerative changes of the visualized spine and both hip joints. Mildly increased stool volume in the rectum. Impression: Nonobstructive bowel gas pattern. No free air. Mildly increased volume in the rectum can be seen with constipation. Signed by: Whitley Ferrer MD on 05/29/2020 4:58 PM
--- NOTE | 2020-05-29 18:33 | Emergency Department Note ---
History of Present Illnes History of Present Illness Chief Complaint: Abdominal Complaints History of Present Illness This is a 89 year old male COMPLAINTS OF CONSTIPATION SINCE LAST TUESDAY - STATES THAT HE TOOK A LINZESS TODAY BUT IT DID NOT HELP. LINZESS BOTTLE IS FROM 2016, IN 2017. PATIENT HAS BEEN TAKING TRAMADOL FOR PAIN. PATIENT ALERT AND ORIENTED, RESP EVEN AND NONLABORED.. . Historian: Patient Arrival Mode: Car Bench Repair Technician Required: No Onset (how long ago): day(s) (7) Severity: moderate Duration (how long): day(s) (7) Timing of current episode: constant Progression: unchanged Chronicity: recurrent Context: Denies recent illness, Denies recent surgery, Denies trauma/injury Relieving factors: none Exacerbating factors: none Associated symptoms: Reports denies other symptoms Treatments prior to arrival: other (see hpi) Past Medical/Family History Physician Review I have reviewed the patient's past medical and family history. Any updates have been documented here. Past Medical History Recent Fever: No Clinical Suspicion of Infectio: No New/Unexplained Change in Ment: No Past Medical History: Hypertension, Hypothyroidism, CAD, Anemia, GERD Other Medical History: PACEMAKER MITRAL VALVE PROLAPSE AFIB Past Surgical History: CABG, Pacer/AICD Other Surgery: QUAD BYPASS PENILE PROSTHESIS VASECTOMY Social History Smoking Cessation: Never Smoker Counseling Performed: No Alcohol Use: None Any Illegal Drug Use: No Other Any Pre-Existing Lines (PICC,: No Review of Systems Review of Systems Constitutional: Reports no symptoms EENTM: Reports no symptoms Cardiovascular: Reports no symptoms Respiratory: Reports no symptoms Gastrointestinal: Reports as per HPI Genitourinary: Reports no symptoms Musculoskeletal: Reports no symptoms Integumentary: Reports no symptoms Neurological: Reports no symptoms Psychological: Reports no symptoms Endocrine: Reports no symptoms Hematological/Lymphatic: Reports no symptoms Physical Exam Related Data Allergies: Coded Allergies: Sulfa (Sulfonamide Antibiotics) (Verified Allergy, Unknown, 05/29/20) Triage Vital Signs Vital Signs Date Time Temp Pulse Resp B/P (MAP) Pulse Ox O2 Delivery O2 Flow Rate FiO2 05/29/20 16:02 97.4 96 20 134/96 98 Room Air Vital signs reviewed: Yes Physical Exam CONSTITUTIONAL Constitutional: Present well-developed, Present well-nourished; Absent distressed HENT HENT: Present normocephalic, Present atraumatic, Present oropharynx clear/moist, Present nose normal HENT L/R: Present left ext ear normal, Present right ext ear normal EYES Eyes: Reports PERRL, Reports conjunctivae normal NECK Neck: Present ROM normal PULMONARY Pulmonary: Present effort normal, Present breath sounds normal CARDIOVASCULAR Cardiovascular: Present regular rhythm, Present heart sounds normal, Present capillary refill normal, Present normal rate GASTROINTESTINAL Abdominal: Present soft, Present nontender, Present bowel sounds normal GENITOURINARY Genitourinary: Present exam deferred SKIN Skin: Present warm, Present dry MUSCULOSKELETAL Musculoskeletal: Present ROM normal NEUROLOGICAL Neurological: Present alert, Present oriented x 3, Present no gross motor or sensory deficits PSYCHOLOGICAL Psychological: Present mood/affect normal, Present judgement normal Results Imaging Imaging results reviewed: Yes Impressions Procedure: [id number] DX/ABDOMEN-1VIEW (KUB) Exam Date: 05/29/20 Exam Time: 1640 REPORT STATUS: Signed Exam: KUB - 2 views Indication: Constipation Comparison: None Findings: Nonobstructive bowel gas pattern. No free air. Upper abdominal calcifications are likely vascular in etiology. Phleboliths in the pelvis. No acute osseous injury. Degenerative changes of the visualized spine and both hip joints. Mildly increased stool volume in the rectum. Impression: Nonobstructive bowel gas pattern. No free air. Mildly increased volume in the rectum can be seen with constipation. Signed by: Awa Ferrer MD on 05/29/2020 4:58 PM Dictated By: AWA FERRER MD 57 Transcribed By: HAI on 05/29/201657 COPY TO: MELISA DANIEL DO~ Assessment & Plan Medical Decision Making [facility] ku ordered to eval for impaction Reassessment Reassessment time: 18:33 Reassessment pt reports he has had 2 large bowel movements since arriving to the er. Assessment & Plan Final Impression: (1) Constipated Last Vital Signs Date Time Temp Pulse Resp B/P (MAP) Pulse Ox O2 Delivery O2 Flow Rate FiO2 05/29/20 16:02 97.4 96 20 134/96 98 Room Air Home Meds Reported Medications Levofloxacin (LEVOFLOXACIN) 250 Mg Tablet, 250 MG PO DAILY, TAB 05/27/20 Acetaminophen/Codeine* (TYLENOL # 3*) 1 Ea Tab, 1 TAB PO Q4HR PRN for Mild Pain (1-3) or Fever>100.8 05/27/20 Potassium Chloride (POTASSIUM CHLORIDE) 20 Meq Tab.er.prt, 20 MEQ PO DAILY 05/22/20 Levothyroxine Sodium (LEVOTHYROXINE SODIUM) 50 Mcg Tablet, 25 MCG PO DAILY, #30 TAB 05/22/20 Aspirin (ASPIR 81) 81 Mg Tablet.dr, 81 MG PO BID 10/10/17 [Magnesium] No Conflict Check, 200 MG PO DAILY 10/07/17 Ascorbic Acid (VITAMIN C) 1,000 Mg Tablet, 1000 MG PO DAILY 10/07/17 Digoxin (DIGOXIN) 125 Mcg Tablet, 0.125 MG PO DAILY, #30 TAB 10/07/17 Discontinued Reported Medications Furosemide (FUROSEMIDE) 40 Mg Tablet, 20 MG PO Daily, #30 TAB 05/22/20 Levofloxacin (LEVAQUIN) 250 Mg Tablet, 250 MG PO DAILY for 10 Days, #30 TAB 10/11/17 Acetaminophen With Codeine (TYLENOL WITH CODEINE #3 TABLET) 1 Each Tablet, 300 MG PO Q4HR for PAIN, TAB 10/11/17 [Fish Oil] No Conflict Check, DAILY 10/07/17 AN NMARIE RODRIGUEZ MD May 29, 2020 18:33
[2020-05-29 19:04] VITALS: BP 136/86
--- OUTSIDE RECORDS SUMMARY | 2020-05-30 10:28 | XMS REPORT | Continuity of Care Document ---
Author Author [facility] t Organization [facility] Address [address] [place] [address] Phone Unavailable Care Team Providers Care Medication Assistant Name Role Phone MD RONY MARQUEZ PCP Laly DANIEL AMBICA Attphys Unavailable HAMPEL, SUBHASH Attphys Unavailable Payers Payer Name Policy Type Policy Number Effective Date Expiration Date S manuel [employer] [id number] 2019 00:00:00 [facility] [employer] [facility] [id number] 2008 00:00:00 [facility] Cdc Review Covid19 [id number] [facility] Problems Condition Name Condition Details Condition Category Status Onset Date Resolution Date Last Treatment Date Treating Clinician Comments Source Constipation Problem Active [facility] Allergies, Adverse Reactions, Alerts Allergy Name Allergy Type Status Severity Reaction(s) Onset Date Inacti ve Date Treating Clinician Comments Source Sulfa (Sulfonamide Antibiotics) Allergy to substance Active 2020-05-29 00:00:00 [facility] Social History Social Habit Start Date Stop Date Quantity Comments Source Sex Assigned At 1930 00:00:00 1930 00:00:00 Male [facility] Medications Ordered Medication Name Filled Medication Name Start Date Stop Da te Current Medication? Ordering Clinician Indication Dosage Frequency Signature (SIG) Comments Components Source Acetaminophen/Codeine Phosphate (Tylenol # 3*) 1 Ea TA B Acetaminophen/Codeine Phosphate (Tylenol # 3*) 1 Ea TAB Yes 1 Every 4 Hours as needed for Mild Pain (1-3) Or Fever>100.8 [facility] Ascorbic Acid (Vitamin C) 1,000 Mg TABLET Ascorbic Aci d (Vitamin C) 1,000 Mg TABLET Yes 1000 Daily [facility] Aspirin (Aspir 81) 81 Mg TABLET. Aspirin (Aspir 81) 81 Mg TABLET.DR Garcia 81 Twice A Day [facility] Digoxin Digoxin Yes .125 Daily [facility] Levofloxacin Levofloxacin Yes 250 Daily [facility] Levothyroxine Sodium Levothyroxine Sodium Yes 25 Daily [facility] Magnesium Magnesium Yes 200 Daily [facility] Potassium Chloride Potassium Chloride Yes 20 Da heath [facility] Furosemide Furosemide 2020-05-26 00:00:00 No 20 Mariam ly [facility] Acetaminophen With Codeine (Tylenol With Codeine #3 Ta blet) 1 Each TABLET Acetaminophen With Codeine (Tylenol With Codeine #3 Tablet) 1 Each TABLET 2020-05-22 00:00:00 No 300 Every 4 Hours for Pa in [facility] Fish Oil Fish Oil 2020-05-22 00:00:00 No Daily [facility] Levofloxacin (Levaquin) 250 Mg TABLET Levofloxacin (Levaquin) 25 0 Mg TABLET 2020-05-22 00:00:00 No 250 Daily [facility] Heart Pill Heart Pill 2017-10-10 00:00:00 No [facility] Omeprazole Omeprazole 2017-10-10 00:00:00 No 20 Twi ce A Day [facility] Primidone Primidone 2017-10-10 00:00:00 No [facility] [place]-3 Fatty Acids/Fish Oil (Fish Oil 1,000 Mg Capsul e) 1 Each CAPSULE [place]-3 Fatty Acids/Fish Oil (Fish Oil 1,000 Mg Capsule) 1 Each CAPSULE 2017-10-07 00:00:00 No Daily [facility] Vital Signs Vital Name Observation Time Observation Value Comments Source Weight 2020-05-29 16:02:00 167 [lb_av] [facility] BMI (Body Mass Index) 2020-05-29 16:02:00 23.3 kg/m2 [facility] Body Temperature 2020-05-27 11:52:00 98.2 [degF] [facility] Weight 2020-05-26 18:12:00 167 [lb_av] [facility] BMI (Body Mass Index) 2020-05-26 18:12:00 23.3 kg/m2 [facility] Procedures Procedure Date / Time Performed Performing Clinician [facility] e X-ray of chest, two views 2020-05-22 00:00:00 [facility] Plan of Care Planned Activity Planned Date Details Comments Source Instructions Constipation - Adult [facility] Encounters Start Date/Time End Date/Time Encounter Type Admission Type Attendi [facility] Care Department Encounter ID Source 2020-05-29 15:47:00 2020-05-29 19:15:00 Departed Emergency Room 1 MELISA DANIEL [facility] [id number] [facility] 2020-05-26 16:46:00 2020-05-27 15:30:00 Discharged Inpatient (obs) 3 SUBHASH MONTALVO [facility] [id number] [facility] 2019-12-24 15:08:00 2019-12-24 12:24:00 Inpatient E [facility] Results Test Description Test Time Test Comments Results Result Comments Source ABDOMEN-1VIEW (KUB) 2020-05-29 16:56:00 [facility] [address] [place] [address] Patient Name: LUDIN GROVES MR #: [id number] : 1930 Age/Sex: 89/M Req #: [id number] Adm Physician: Ordered by: MELISA DANIEL DO Report #: [id number] Location: ER Room/Bed: Procedure: [id number] DX/ABDOMEN-1VIEW (KUB) Exam Date: 05/29/20 Exam Time: 1640 REPORT STATUS: Signed Exam: KUB - 2 views Indication: Constipation Comparison: None Findings: Nonobstructive bowel gas pattern. No free air. Upper abdominal calcifications are likely vascular in etiology. Phleboliths in the pelvis. No acute osseous injury. Degenerative changes of the visualized spine and both hip joints. Mildly increased stool volume in the rectum. Impression: Nonobstructive bowel gas pattern. No free air. Mildly increased volume in the rectum can be seen with constipation. Signed by: Awa Ferrer MD on 05/29/2020 4:58 PM Dictated By: AWA FERRER MD 57 Transcribed By: HAI on 05/29/201657 COPY TO: MELISA DANIEL, DO Blood leukocytes automated count (number/volume) 2020-05-27 05:05:00 Test Item White Blood Count (test code = 6690-2) 9.31 4.8-10.8 [facility] erythrocytes automated count (number/volume)2020-05-27 05:05:00* Test Item Value Reference Range Interpretation Comments Red Blood Count (test code = 789-8) 4.18 4.3-5.7 [facility] HospitalBlood hemoglobin measurement (moles/volume)2020-05-27 05:05:00* Test Item Value Reference Range Interpretation Comments Hemoglobin (test code = 05833-2) 11.4 14.0-18.0 [facility] HospitalAutomated blood hematocrit (volume fraction)2020-05-27 05:05:00* Test Item Value Reference Range Interpretation Comments Hematocrit (test code = 4544-3) 36.1 38.2-49.6 [facility] HospitalAutomated erythrocyte mean corpuscular guvneu1228-58-69 05:05:00* Test Item Value Reference Range Interpretation Comments Mean Corpuscular Volume (test code = 787-2) 86.4 81-99 [facility] HospitalAutomated erythrocyte mean corpuscular hemoglobin (mass per erythrocyte)2020-05-27 05:05:00* Test Item Value Reference Range Interpretation Comments Mean Corpuscular Hemoglobin (test code = 785-6) 27.3 28-32 [facility] HospitalAutomated erythrocyte mean corpuscular hemoglobin concentration measurement (mass/volume)2020-05-27 05:05:00* Test Item Value Reference Range Interpretation Comments Mean Corpuscular Hemoglobin Concent (test code = 786-4) 31.6 31-35 [facility] HospitalRDW CkgTi-Vjx8294-88-15 05:05:00* Test Item Value Reference Range Interpretation Comments Red Cell Distribution Width (test code = 01087-6) 17.3 11.7 -14.4 [facility] HospitalAutomated blood platelet count (count/volume)2020-05-27 05:05:00* Test Item Value Reference Range Interpretation Comments Platelet Count (test code = 777-3) 133 140-360 [facility] neutrophil count as percentage of total jfldslgwrh3612-63-67 05:05:00* Test Item Value Reference Range Interpretation Comments Neutrophils (%) (Auto) (test code = 16918-7) 80.6 38.7-80.0 [facility] HospitalAutomated blood lymphocyte count as percentage ot total godutcihga6953-80-63 05:05:00* Test Item Value Reference Range Interpretation Comments Lymphocytes (%) (Auto) (test code = 736-9) 10.5 18.0-39.1 [facility] HospitalAutec[facility] blood monocyte count as percentage of total erwdpdtnmz1252-17-81 05:05:00* Test Item Value Reference Range Interpretation Comments Monocytes (%) (Auto) (test code = 5905-5) 8.3 4.4-11.3 [facility] HospitalAutomated blood eosinophil count as percentage of total yinulptgya9035-31-54 05:05:00* Test Item Value Reference Range Interpretation Comments Eosinophils (%) (Auto) (test code = 713-8) 0.0 0.0-6.0 [facility] HospitalAutomated blood basophil count as percentage of total khibdoltvl6162-99-26 05:05:00* Test Item Value Reference Range Interpretation Comments Basophils (%) (Auto) (test code = 706-2) 0.2 0.0-1.0 [facility] HospitalFluoroscopic procedure less than one hour adllmylt3130-76-52 05:05:00* Test Item Value Reference Range Interpretation Comments IM GRANULOCYTES % (test code = IM GRANULOCYTES %) 0.4 0.0- 1.0 [facility] count 2020-05-27 05:05:00* Test Item Value Reference Range Interpretation Comments Neutrophils # (Auto) (test code = 751-8) 7.5 2.1-6.9 [facility] HospitalBlood lymphocytes count (number/volume) 2020-05-27 05:05:00* Test Item Value Reference Range Interpretation Comments Lymphocytes # (Auto) (test code = 98551-0) 1.0 1.0-3.2 [facility] monocytes automated count (number/volume)2020-05-27 05:05:00* Test Item Value Reference Range Interpretation Comments Monocytes # (Auto) (test code = 742-7) 0.8 0.2-0.8 [facility] HospitalAutomated blood eosinophil count 2020-05-27 05:05:00* Test Item Value Reference Range Interpretation Comments Eosinophils # (Auto) (test code = 711-2) 0.0 0.0-0.4 [facility] HospitalAutomated blood basophil count (count/volume)2020-05-27 05:05:00* Test Item Value Reference Range Interpretation Comments Basophils # (Auto) (test code = 704-7) 0.0 0.0-0.1 [facility] HospitalFluoroscopic procedure less than one hour tvjscrkj4088-10-81 05:05:00* Test Item Value Reference Range Interpretation Comments Absolute Immature Granulocyte (auto (london t code = Absolute Immature Granulocyte (auto) 0.04 0-0.1 [facility] sodium measurement (moles/volume)2020-05-27 05:05:00* Test Item Value Reference Range Interpretation Comments Sodium Level (test code = 2951-2) 137 136-145 [facility] or plasma potassium measurement (moles/volume)2020-05-27 05:05:00* Test Item Value Reference Range Interpretation Comments Potassium Level (test code = 2823-3) 4.7 3.5-5.1 [facility]rum or plasma chloride measurement (moles/volume)2020-05-27 05:05:00* Test Item Value Reference Range Interpretation Comments Chloride Level (test code = 2075-0) 109 98-107 [facility]ererum or plasma carbon dioxide, total measurement (moles/volume)2020-05-27 05:05:00* Test Item Value Reference Range Interpretation Comments Carbon Dioxide Level (test code = 2028-9) 20 22-29 [facility]ererum or plasma anion prk9070-92-66 05:05:00* Test Item Value Reference Range Interpretation Comments Anion Gap (test code = 10794-6) 12.7 8-16 [facility]ererum or plasma urea nitrogen measurement (mass/volume)2020-05-27 05:05:00* Test Item Value Reference Range Interpretation Comments Blood Urea Nitrogen (test code = 3094-0) 26 7-26 [facility]ererum or plasma creatinine measurement (mass/volume)2020-05-27 05:05:00* Test Item Value Reference Range Interpretation Comments Creatinine (test code = 2160-0) 1.49 0.72-1.25 [facility]ererum or plasma urea nitrogen/creatinine mass xmepl1222-26-75 05:05:00* Test Item Value Reference Range Interpretation Comments BUN/Creatinine Ratio (test code = 3097-3) 17 6-25 [facility] HospitalEstimated glomerular filtration rate (GFR) prowudhfmmowx3122-63-77 05:05:00* Test Item Value Reference Range Interpretation Comments Estimat Glomerular Filtration Rate (test code = 741980085) 45 >60 Ranges were taken from the National Kidney Disease Education Program and the [facility] Kidney Foundation literature.Reference ranges:60 or greater: Xflvml52-20 ( for 3 consecutive months): Chronic kidney disease 15 or less: Kidney failureGonzales Memorial HospitalGlucose awiqckfuqii7218-49-12 05:05:00* Test Item Value Reference Range Interpretation Comments Glucose Level (test code = MUM6945) 103 74-118 [facility]ererum or plasma calcium measurement (mass/volume)2020-05-27 05:05:00* Test Item Value Reference Range Interpretation Comments Calcium Level (test code = 33366-4) 7.6 8.4-10.2 [facility] HospitalBlood leukocytes automated count (number/volume)2020-05-27 05:05:00* Test Item Value Reference Range Interpretation Comments White Blood Count (test code = 6690-2) 9.31 4.8-10.8 [facility] HospitalBlood erythrocytes automated count (number/volume)2020-05-27 05:05:00* Test Item Value Reference Range Interpretation Comments Red Blood Count (test code = 789-8) 4.18 4.3-5.7 [facility] HospitalBlood hemoglobin measurement (moles/volume)2020-05-27 05:05:00* Test Item Value Reference Range Interpretation Comments Hemoglobin (test code = 57090-4) 11.4 14.0-18.0 [facility] HospitalAutomated blood hematocrit (volume fraction)2020-05-27 05:05:00* Test Item Value Reference Range Interpretation Comments Hematocrit (test code = 4544-3) 36.1 38.2-49.6 [facility] HospitalAutomated erythrocyte mean corpuscular kvpxjk7752-11-56 05:05:00* Test Item Value Reference Range Interpretation Comments Mean Corpuscular Volume (test code = 787-2) 86.4 81-99 [facility] HospitalAutomated erythrocyte mean corpuscular hemoglobin (mass per erythrocyte)2020-05-27 05:05:00* Test Item Value Reference Range Interpretation Comments Mean Corpuscular Hemoglobin (test code = 785-6) 27.3 28-32 [facility] HospitalAutomated erythrocyte mean corpuscular hemoglobin concentration measurement (mass/volume)2020-05-27 05:05:00* Test Item Value Reference Range Interpretation Comments Mean Corpuscular Hemoglobin Concent (test code = 786-4) 31.6 31-35 [facility] HospitalRDW JiuKu-Dnm5835-76-15 05:05:00* Test Item Value Reference Range Interpretation Comments Red Cell Distribution Width (test code = 25147-1) 17.3 11.7 -14.4 [facility] HospitalAutomated blood platelet count (count/volume)2020-05-27 05:05:00* Test Item Value Reference Range Interpretation Comments Platelet Count (test code = 777-3) 133 140-360 [facility] HospitalAutomated blood segmented neutrophil count as percentage of total swopufykei9574-78-29 05:05:00* Test Item Value Reference Range Interpretation Comments Neutrophils (%) (Auto) (test code = 67422-7) 80.6 38.7-80.0 [facility] HospitalAutomated blood lymphocyte count as percentage ot total mmtsafkxcw7453-19-24 05:05:00* Test Item Value Reference Range Interpretation Comments Lymphocytes (%) (Auto) (test code = 736-9) 10.5 18.0-39.1 [facility] HospitalAutomated blood monocyte count as percentage of total acggwmftps6509-66-69 05:05:00* Test Item Value Reference Range Interpretation Comments Monocytes (%) (Auto) (test code = 5905-5) 8.3 4.4-11.3 [facility] HospitalAutomated blood eosinophil count as percentage of total nvwvcsmkby4226-87-71 05:05:00* Test Item Value Reference Range Interpretation Comments Eosinophils (%) (Auto) (test code = 713-8) 0.0 0.0-6.0 [facility] HospitalAutomated blood basophil count as percentage of total vhztixwaki0895-98-94 05:05:00* Test Item Value Reference Range Interpretation Comments Basophils (%) (Auto) (test code = 706-2) 0.2 0.0-1.0 [facility] HospitalFluoroscopic procedure less than one hour jhctbaxb6411-83-19 05:05:00* Test Item Value Reference Range Interpretation Comments IM GRANULOCYTES % (test code = IM GRANULOCYTES %) 0.4 0.0- 1.0 [facility] HospitalAutomated blood neutrophil count 2020-05-27 05:05:00* Test Item Value Reference Range Interpretation Comments Neutrophils # (Auto) (test code = 751-8) 7.5 2.1-6.9 [facility] HospitalBlood lymphocytes count (number/volume) 2020-05-27 05:05:00* Test Item Value Reference Range Interpretation Comments Lymphocytes # (Auto) (test code = 07900-0) 1.0 1.0-3.2 [facility] HospitalBlood monocytes automated count (number/volume)2020-05-27 05:05:00* Test Item Value Reference Range Interpretation Comments Monocytes # (Auto) (test code = 742-7) 0.8 0.2-0.8 [facility] HospitalAutomated blood eosinophil count 2020-05-27 05:05:00* Test Item Value Reference Range Interpretation Comments Eosinophils # (Auto) (test code = 711-2) 0.0 0.0-0.4 [facility] HospitalAutomated blood basophil count (count/volume)2020-05-27 05:05:00* Test Item Value Reference Range Interpretation Comments Basophils # (Auto) (test code = 704-7) 0.0 0.0-0.1 [facility] HospitalFluoroscopic procedure less than one hour uflkpuxh6651-03-08 05:05:00* Test Item Value Reference Range Interpretation Comments Absolute Immature Granulocyte (auto (london t code = Absolute Immature Granulocyte (auto) 0.04 0-0.1 [facility] Centererum or plasma sodium measurement (moles/volume)2020-05-27 05:05:00* Test Item Value Reference Range Interpretation Comments Sodium Level (test code = 2951-2) 137 136-145 [facility]ererum or plasma potassium measurement (moles/volume)2020-05-27 05:05:00* Test Item Value Reference Range Interpretation Comments Potassium Level (test code = 2823-3) 4.7 3.5-5.1 [facility]ererum or plasma chloride measurement (moles/volume)2020-05-27 05:05:00* Test Item Value Reference Range Interpretation Comments Chloride Level (test code = 2075-0) 109 98-107 [facility] Centererum or plasma carbon dioxide, total measurement (moles/volume)2020-05-27 05:05:00* Test Item Value Reference Range Interpretation Comments Carbon Dioxide Level (test code = 2028-9) 20 22-29 [facility] Centererum or plasma anion plz0210-76-49 05:05:00* Test Item Value Reference Range Interpretation Comments Anion Gap (test code = 89559-7) 12.7 8-16 [facility]ere[facility] or plasma urea nitrogen measurement (mass/volume)2020-05-27 05:05:00* Test Item Value Reference Range Interpretation Comments Blood Urea Nitrogen (test code = 3094-0) 26 7-26 [facility]ererum or plasma creatinine measurement (mass/volume)2020-05-27 05:05:00* Test Item Value Reference Range Interpretation Comments Creatinine (test code = 2160-0) 1.49 0.72-1.25 [facility]ererum or plasma urea nitrogen/creatinine mass ancvy4378-52-16 05:05:00* Test Item Value Reference Range Interpretation Comments BUN/Creatinine Ratio (test code = 3097-3) 17 6-25 [facility] HospitalEstimated glomerular filtration rate (GFR) cwtdhfblasbwd5353-71-71 05:05:00* Test Item Value Reference Range Interpretation Comments Estimat Glomerular Filtration Rate (test code = 660831117) 45 >60 Ranges were taken from the National Kidney Disease Education Program and the [facility] Kid[facility] Foundation literature.Reference ranges:60 or greater: Iipujv58-27 ( for 3 consecutive months): Chronic kidney disease 15 or less: Kidney failureGonzales Memorial HospitalGlucose ohyuznabxvj1236-55-25 05:05:00* Test Item Value Reference Range Interpretation Comments Glucose Level (test code = ZPZ4541) 103 74-118 [facility]ere[facility] or plasma calcium measurement (mass/volume)2020-05-27 05:05:00* Test Item Value Reference Range Interpretation Comments Calcium Level (test code = 61096-4) 7.6 8.4-10.2 [facility] HospitalFluoroscopic procedure less than one hour rmygdisd6534-30-48 16:15:00* Test Item Value Reference Range Interpretation Comments Coronavirus (PCR) (test code = Coronavirus (PCR)) NOT DETECTED NOTD ETECTED SARS-CoV-2 PCRHologic Aptima SARS-CoV-2 assay is a nucleic amplification test in tended for the qualitative detection of RNA from SARS-CoV-2 from nasopharyngeal (SHIPPING AND RECEIVING OPERATOR) specimens. It is used under Emergency Use Authorization (EUA) by FDA.A posi tive result is indicative of the presence of SARS-CoV-2 RNA. Clinical correlatio n with patient history and other diagnostic information is necessary to determin e patient infection status.A negative (Not Detected) result does not preclude SA RS-CoV-2 infection. Clinical Correlation with patient history and other diagnost ic information should be used in patient management decisions.Invalid: Unable to generate a valid result on this specimen. Please submit a new specimen for repr at testing oc clinically indicated.Tesing performed by:[facility] Laboratory Services[address] [place] [address] [id number], Francisco Javier finley MD, PhDGonzales Memorial HospitalFluoroscopic procedure less than one hour tbknhfdl4849-26-68 16:15:00* Test Item Value Reference Range Interpretation Comments Coronavirus (PCR) (test code = Coronavirus (PCR)) NOT DETECTED NOTD ETECTED SARS-CoV-2 PCRHologic Aptima SARS-CoV-2 assay is a nucleic amplification test in tended for the qualitative detection of RNA from SARS-CoV-2 from nasopharyngeal (SHIPPING AND RECEIVING OPERATOR) specimens. It is used under Emergency Use Authorization (EUA) by FDA.A posi tive result is indicative of the presence of SARS-CoV-2 RNA. Clinical correlatio n with patient history and other diagnostic information is necessary to determin e patient infection status.A negative (Not Detected) result does not preclude SA RS-CoV-2 infection. Clinical Correlation with patient history and other diagnost ic information should be used in patient management decisions.Invalid: Unable to generate a valid result on this specimen. Please submit a new specimen for repr at testing oc clinically indicated.Tesing performed by:[facility] Laboratory Services[address] [place] [address] [id number], Francisco Javier finley MD, PhDBellville Medical Center 2 QALFM3499-87-34 15:43:00 [facility] [address] [address] Patient Name: LUDIN GROVES MR #: [id number] : 1930 Age/Sex: 89/M Req #: [id number] Adm Physician: Ordered by: SUBHASH MONTALVO MD Report #: [id number] Location: OR Room/Bed: Procedure: [id number] DX/CHEST 2 VIE WS Exam Date: 05/22/20 Exam Time: 1526 REPORT STATUS: Signed EXAMINATION: CHEST 2 V IEWS INDICATION: Pre-operative COMPARISON: Chest radiograph 018 FINDINGS: LINES/TUBES:Left chest pacer unchanged. Interval pl acement of right chest implanted device with electrodes projecting superiorly out of view. LUNGS:The lungs are well-inflated. No focal consolidation or p ulmonary edema. PLEURA:No pleural effusion or pneumothorax. MEDIASTINU M:The cardiomediastinal silhouette appears normal in size and shape. Postopera tive findings of prior CABG. BONES/SOFT TISSUES:No acute osseous injury. ABDOMEN:No free air under the diaphragm. IMPRESSION: No focal pneu monia or pulmonary edema. Signed by: Awa Ferrer MD on 05/22/2020 3:45 PM Dictated By: AWA FERRER MD 44 COPY TO: SUBHASH MONTALVO MD CHEST 2 V[address] [place] [address] Patient Name: LUDIN GROVES MR #: [id number] : 1930 Age/Sex: 87/M Req #: [id number] Adm Physician: Ordered by: SUBHASH MONTALVO MD Report #: [id number] Location: OR Room/Bed: Procedure: [id number] DX/CHEST 2 VIEWS Exam Date: 10/06/17 Exam Time: 1200 REPORT STATUS: Signed PROCEDURE: Frontal and lateral views of the chest. COMPARISON: None. INDICATIONS: PREOPERATIVE CHEST XRAY FOR CYSTO SURGERY FINDINGS : Lines/tubes: Dual-lead left-sided cardiac pacemaker. Lungs: The lungs are well inflated and clear. There is no evidence of pneumonia or pulmonary edema. Pleura: There is no pleural effusion or pneumothorax. Heart and mediastinum: The cardiac silhouette is moderately enlarged. The sternoto my wires and mediastinal clips. Bones: Multilevel degenerative changes of the thoracic spine with anterior wedging of mid to lower thoracic vertebral b odies. IMPRESSION: 1. Moderate cardiomegaly without acute decompen sation. Latoya Monge M.D. Dictated by: Latoya bobo M.D. on 10/06/2017 at 15:28 Electronically approved by: Latoya Monge M.D. on 10/06/2017 at 15:28 Dictated By: SITA MOSS MD, MD [id number] Topete scribed By: HUMZA on 10/06/17 1528 COPY TO: SUBHASH MONTALVO MD
== END 2020-05-29 19:15 | disposition home or self-care (01) ==
LOC: ER 15:47
DX: K59.00 Constipation, unspecified (principal); I10 Essential (primary) hypertension; E03.9 Hypothyroidism, unspecified; I25.10 Atherosclerotic heart disease of native coronary artery without angina pectoris; D64.9 Anemia, unspecified; K21.9 Gastro-esophageal reflux disease without esophagitis; Z95.1 Presence of aortocoronary bypass graft; Z95.810 Presence of automatic (implantable) cardiac defibrillator
CPT/HCPCS: 74018; 99283

== ENCOUNTER 2020-06-02 10:16 | Emergency (ER) | payer OTHER ==
[~2020-06-02] VITALS: Ht 180.3 cm; Wt 75.7 kg
--- NOTE | 2020-06-02 10:59 | Emergency Department Note ---
History of Present Illnes History of Present Illness Chief Complaint: Genitourinary History of Present Illness This is a 89 year old male PATIENT IN FROM HOME WITH COMPLAINTS OF PENILE SWELLING AND BRUISING; PATIENT HAD A PENILE IMPLANT CHANGED LAST TUESDAY BY DR SUBHASH MONTALVO. PATIENT DENIES PAIN, APPEARS IN NO DISTRESS, RESP EVEN AND NONLABORED. Historian: Patient Arrival Mode: Car Hospitality Specialist Required: No Onset (how long ago): day(s) (4) Location: SCROTUM Quality: BRUISING Radiation: Reports non-radiation Severity: mild (NO PAIN) Onset quality: gradual Timing of current episode: constant Progression: unchanged Chronicity: new Context: Denies recent illness Relieving factors: none Exacerbating factors: none Associated symptoms: Reports denies other symptoms Past Medical/Family History Physician Review I have reviewed the patient's past medical and family history. Any updates have been documented here. Past Medical History Recent Fever: No Clinical Suspicion of Infectio: No New/Unexplained Change in Ment: No Past Medical History: Hypertension, Hypothyroidism, CAD, Anemia, GERD Other Medical History: PACEMAKER MITRAL VALVE PROLAPSE AFIB Past Surgical History: CABG, Pacer/AICD Other Surgery: QUAD BYPASS PENILE PROSTHESIS VASECTOMY Social History Smoking Cessation: Unknown if ever smoked Counseling Performed: No Alcohol Use: None Any Illegal Drug Use: No Physically hurt or threatened: No Family History Family history of heart diseas: No Other Any Pre-Existing Lines (PICC,: No Review of Systems Review of Systems Constitutional: Reports no symptoms EENTM: Reports no symptoms Cardiovascular: Reports no symptoms Respiratory: Reports no symptoms Gastrointestinal: Reports no symptoms Genitourinary: Reports as per HPI Musculoskeletal: Reports no symptoms Integumentary: Reports no symptoms Neurological: Reports no symptoms Psychological: Reports no symptoms Endocrine: Reports no symptoms Hematological/Lymphatic: Reports no symptoms Physical Exam Related Data Allergies: Coded Allergies: Sulfa (Sulfonamide Antibiotics) (Verified Allergy, Unknown, 06/02/20) Triage Vital Signs Vital Signs Date Time Temp Pulse Resp B/P (MAP) Pulse Ox O2 Delivery O2 Flow Rate FiO2 06/02/20 10:30 97.5 105 18 134/79 100 Room Air Vital signs reviewed: Yes Physical Exam CONSTITUTIONAL Constitutional: Present well-developed, Present well-nourished HENT HENT: Present normocephalic, Present atraumatic, Present oropharynx clear/moist, Present nose normal HENT L/R: Present left ext ear normal, Present right ext ear normal EYES Eyes: Reports PERRL, Reports conjunctivae normal NECK Neck: Present ROM normal PULMONARY Pulmonary: Present effort normal, Present breath sounds normal CARDIOVASCULAR Cardiovascular: Present regular rhythm, Present heart sounds normal, Present capillary refill normal, Present normal rate GASTROINTESTINAL Abdominal: Present soft, Present nontender, Present bowel sounds normal GENITOURINARY Genitourinary: Present penis normal, Present other (ECCHYMOSIS WHICH HAS TRACKED TO SCROTUM, NO THICKNESS OF SCROTUM, NO TENDERNESS) SKIN Skin: Present warm, Present dry MUSCULOSKELETAL Musculoskeletal: Present ROM normal NEUROLOGICAL Neurological: Present alert, Present oriented x 3, Present no gross motor or sensory deficits PSYCHOLOGICAL Psychological: Present mood/affect normal, Present judgement normal Assessment & Plan Medical Decision Making MDM I SPOKE WITH DR MONTALVO - NORMAL POST-OP BRUISING, HE WILL F/U IN CLINIC, NO BLOOD THINNERS FOR 1 MORE WEEK Reassessment Reassessment DC HOME, F/U DR MONTALVO Assessment & Plan Final Impression: (1) Postoperative ecchymosis Depart Disposition: HOME, SELF-CARE Last Vital Signs Date Time Temp Pulse Resp B/P (MAP) Pulse Ox O2 Delivery O2 Flow Rate FiO2 06/02/20 10:30 97.5 105 18 134/79 100 Room Air Home Meds Reported Medications Levofloxacin (LEVOFLOXACIN) 250 Mg Tablet, 250 MG PO DAILY, TAB 05/27/20 Acetaminophen/Codeine* (TYLENOL # 3*) 1 Ea Tab, 1 TAB PO Q4HR PRN for Mild Pain (1-3) or Fever>100.8 05/27/20 Potassium Chloride (POTASSIUM CHLORIDE) 20 Meq Tab.er.prt, 20 MEQ PO DAILY 05/22/20 Levothyroxine Sodium (LEVOTHYROXINE SODIUM) 50 Mcg Tablet, 25 MCG PO DAILY, #30 TAB 05/22/20 Aspirin (ASPIR 81) 81 Mg Tablet.dr, 81 MG PO BID 10/10/17 [Magnesium] No Conflict Check, 200 MG PO DAILY 10/07/17 Ascorbic Acid (VITAMIN C) 1,000 Mg Tablet, 1000 MG PO DAILY 10/07/17 Digoxin (DIGOXIN) 125 Mcg Tablet, 0.125 MG PO DAILY, #30 TAB 10/07/17 Discontinued Reported Medications Furosemide (FUROSEMIDE) 40 Mg Tablet, 20 MG PO Daily, #30 TAB 05/22/20 DANIEL ROJAS MD Jun 02, 2020 10:59
== END 2020-06-02 10:56 | disposition home or self-care (01) ==
LOC: ER 10:55
DX: R23.3 Spontaneous ecchymoses (principal); Z98.890 Other specified postprocedural states; I10 Essential (primary) hypertension; I25.10 Atherosclerotic heart disease of native coronary artery without angina pectoris; E03.9 Hypothyroidism, unspecified; K21.9 Gastro-esophageal reflux disease without esophagitis; Z95.0 Presence of cardiac pacemaker
CPT/HCPCS: 99282